=== PATIENT | female | born 1985 | race Caucasian/White ===

== ENCOUNTER 2025-06-08 10:20 | Outpatient (CLI) | payer BC, SELFPAY ==
--- NOTE | ~2025-06-08 | MM_ITS ---
EXAMINATION: MM screening chelsea BI w starr HISTORY: Screening TECHNIQUE: Craniocaudal and mediolateral oblique 3-D tomosynthesis images were obtained and synthetic 2-D images were generated. CAD analysis was submitted and interpreted. COMPARISON: No prior mammogram is available for comparison at this institution. BREAST PARENCHYMAL COMPOSITION: Dense: The breasts are heterogeneously dense, which may obscure small masses FINDINGS: There is no evidence of suspicious mass, calcification, or architectural distortion to suggest malignancy in either breast. There has been no suspicious interval change. IMPRESSION: 1. No mammographic evidence of malignancy. 2. Recommend routine screening mammography in one year. BI-RADS Category 1: Negative Reviewed, dictated and finalized at location B.
--- OUTSIDE RECORDS SUMMARY | 2025-06-08 10:54 | XMS_ITS | Clinical Summary ---
Author Organization [facility] Address [address] [place] [address] Care Team Providers Care Turnaround Engineer Name Role Phone Unavailable Primary Care Provider Unavailabl e Source Comments [facility],non-owned Affiliates and Associated Physician Practices is amultiple site organization consisting of ambulatory clinics and hospital sitesin [place], [place], [place] and [place]. This disclosure is being madepursuant to the Care Everywhere program and may not contain all information available regarding this patient. Last updated 18.[facility] [employer] Active Problems Problem Noted Date Diagnosed Date Headache 05/23/2015 Deficiency of other specified B group vitamins 0 10/19/2012 Overview (11/08/2017): Abnormal white matter lesions on brain MRI. MS and strokes not likely Social History Tobacco Use Types Packs/Day Years Used Date Smoking Tobacco: Never Assessed Comments Unknown Sex and Gender Information Value Date Recorded Sex Assigned at Not on file Legal Sex Female 6:46 PM COUNTER FORMER Gender Identity Not on file Sexual Orientation Not on file Plan of Treatment Health Maintenance Due Date Last Done Comments LIPID TESTING 1984 MAMMOGRAM 1984 HIV SCREENING 02/21/1999 HEPATITIS C SCREENING 02/17/2002 DTAP/TDAP/TD VACCINES (1 - Tdap) 02/21/2003 HEPATITIS B VACCINE (1 of 3 - 19+ 3-dose series) 02/21/2003 HPV VACCINE (1 - 3-dose SCDM series) 02/21/2011 DEPRESSION SCREENING 08/09/2024 COVID-19 VACCINE (1 - 2023-2 5 season) 2025 INFLUENZA VACCINE (#1) 2025 ZOSTER VACCINE (1 of 2) 02/21/2034 HIB VACCINE Aged Out No longer eligi ble based on patient's age to complete this topic MENINGOCOCCAL (Group B) VACC INE SHARED DECISION-MAKING Aged Out No longer eligibl e based on patient's age to complete this topic MENINGOCOCCAL GROUPS A/C/Y/W VACCINE Aged Out No longer eligible b ased on patient's age to complete this topic PNEUMOCOCCAL VACCINE Aged Out No long er eligible based on patient's age to complete this topic
--- OUTSIDE RECORDS SUMMARY | 2025-06-08 10:54 | XMS_ITS | Clinical Summary ---
Author Organization [facility] Address [address] [place] [address] Phone Care Team Providers Care Weather Forecaster Name Role Phone Ethel Franklin Primary Care Provider [phone] Allergies No known active allergies Medications venlafaxine (EFFEXOR-XR) 75 MG CAPSULE SR 24 HR Take 1 Capsule by mouth daily. 90 Capsule 3 01/30/2025 Active valACYclovir (VALTREX) 1 GM Tablet Take 0.5 Tablets by mouth 2 times daily. 60 Tablet 02/16/2025 Active Active Problems No known active problems Family History Medical History Relation Name Comments Crohn's Disease Brother No Known Problems Father No Known Problems Maternal Grandfather Chronic Obstructive Pulmonary Disease Maternal Grandmo ther Arthritis Mother Heart Attack Paternal Grandfather Heart Surgery Paternal Grandfather Rheumatoid Arthritis Paternal Grandmother Relation Name Status Comments Brother Alive Father Alive Maternal Grandfather Maternal Grandmother Mother Alive Paternal Grandfather Paternal Grandmother Social History Tobacco Use Types Packs/Day Years Used Date Smoking Tobacco: Former Cigarettes Smokeless Tobacco: Never Tobacco Cessation:Counseling Given: Not Answered Alcohol Use Standard Drinks/Week Comments Not Currently 0 (1 standard drink = 0.6 oz pur e alcohol) [facility] Utilities Answer Date Recorded In the past 12 months has e [employer], gas, oil, or water company threatened to shut off services in your home? No 08/11/2024 Social Connection and Isolation Panel Answer Date Recorded In a typical week, how many times do you talk on the phone with family, friends, or neighbors? More than three times a week 08/11/2024 How often do you get togethe r with friends or relatives? Once a week 08/11/2024 How often do you attend chur ch or mu-ism services? Never 08/11/2024 Do you belong to any clubs o r organizations such as catholic groups, unions, fraternal or athletic groups, or school groups? Yes 08/11/2024 How often do you attend meet ings of the clubs or organizations you belong to? More than 4 times per year 08/11/2024 Are you , , di vorced, , never , or living with a partner? 08/11/2024 AUDIT-C Answer Date Recorded Q1: How often do you have a drink containing alc ohol? Monthly or less 08/11/2024 Q2: How many drinks containi ng alcohol do you have on a typical day when you are drinking? 3 or 4 08/11/2024 Q3: How often do you have si x or more drinks on one occasion? Less than monthly 08/11/2024 Overall Financial Resource Strain (CARDIA) Answe r Date Recorded How hard is it for you to pa y for the very basics like food, housing, medical care, and heating? Not hard at all 08/11/2024 PHQ-2 Answer Date Recorded Total Score - Questions 1-9 8 12/07 [facility] - Occupational Stress Questionnaire Answer Date Recorded Do you feel stress - tense, restless, nervous, or anxious, or unable to sleep at night because your mind is troubled all the time - these days? To some extent 08/11/2024 Exercise Vital Sign Answer Date Recorde d On average, how many days pe r week do you engage in moderate to strenuous exercise (like a brisk walk)? 5 days 08/11/2024 On average, how many minutes do you engage in exercise at this level? 40 min 08/11/2024 Hunger Vital Sign Answer Date Recorded Within the past 12 months, y ou worried that your food would run out before you got the money to buy more. Never true 08/11/19 25 Within the past 12 months, t he food you bought just didn't last and you didn't have money to get more. Never true 08/11/2024 PRAPARE - Transportation Answer Date Re corded In the past 12 months, has l ack of transportation kept you from medical appointments or from getting medications? No 10/2024 In the past 12 months, has l ack of transportation kept you from meetings, work, or from getting things needed for daily living? No 08/11/2024 Housing Stability Vital Sign Answer Michael e Recorded In the last 12 months, was t here a time when you were not able to pay the mortgage or rent on time? No 08/11/2024 In the past 12 months, how m any times have you moved where you were living? 0 08/11/2024 At any time in the past 12 m [facility], were you homeless or living in a alf (including now)? 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 Not on file Not on file Last Filed Vital Signs Vital Sign Reading Time Taken Comments Blood Pressure 104/70 12/18/2024 9:28 AM CDT Pulse 85 12/18/2024 9:28 AM CDT Temperature 36.7 C (98 F) 12/18/2024 9:28 AM CDT Respiratory Rate 12 12/18/2024 9:28 AM CDT Oxygen Saturation 99% 12/18/2024 9:28 AM CDT Inhaled Oxygen Concentration - - Weight 76.7 kg (169 lb) 12/18/2024 9:28 AM CDT Height 165.1 cm (5' 5) 08/11/2024 2:37 PM LINING CASER Body Mass Index 28.12 08/11/2024 2:37 PM LINING CASER Plan of Treatment Upcoming Encounters Date Type Department Care Team (Late st Contact Info) Description 08/31/2025 4:20 PM LINING CASER Office Visit [facility] - [place] [address] [place] [address] Ethel Franklin, DO [address] [place] [address] Health Maintenance Due Date Last Done Comments Hepatitis C Virus (HCV) Screening 1984 TdaP Immunization 1984 Hepatitis B Immunization (1 of 3 - 19+ 3-dose series) 02/21/2003 Human Papillomavirus (HPV) Immunization (1 - 3-dose SCDM series) 02/21/2011 HPV/Cotest 02/21/2014 Influenza Immunization (#1) 2025 SARS-COV-2 Immunization ( season) 2025 11/28/2021, 12/24/2020, 12/02/2020 Mammogram 06/06/2025 06/06/2024 Cervical Cancer Screening (CCS) 02/21/2028 Pap Smear 02/21/2028 02/20/2025, 0704/2024, 02/12/2023, Additional history exists Respiratory Syncytial Virus (RSV) Immunization (Adult) (1 - 1-dose 75+ series) 02/21/2059 Discussion re Starting/Frequency of Mammograms Completed 06/16/2024, 06/06/2024 Meningococcal Immunization (ACWY) Aged Out No longer eligible based on patient's age to complete this topic Pneumococcal Immunization Combined Aged Out No longer eligible based on patient's age to complete this topic Rotavirus Immunization Aged Out No lo nger eligible based on patient's age to complete this topic Procedures Procedure Name Priority Date/Time Associated Diagnosis Comments PATHOLOGY CYTOLOGY DIRECTOR TECHNICAL 02/20/2025 12:00 AM CDT from Last 3 Months or Most Recently Relevant to Health Maintenance Results * PATHOLOGY CYTOLOGY DIRECTOR TECHNICAL (02/20/2025 12:00 AM CDT) 02/20/2025 us Provider Scan PATHOLOGY/CYTOLOGY ORDERABLES Fi nal Result SCAN from Last 3 Months or Most Recently Relevant to Health Maintenance Insurance [facility] Care Teams Weather Forecaster Relationship Specialty Start Date End Date Ethel Franklin DO [address] [facility] [place] [address] PCP - General Family Medicine 08/10/24
--- OUTSIDE RECORDS SUMMARY | 2025-06-08 10:54 | XMS_ITS | Encounter Summary ---
Author Organization [facility] Address [address] [place] [address] Phone Care Team Providers Care Tip Stretcher Name Role Phone Ethel Franklin DO Primary Care Provider [phone] Reason for Visit * Reason Onset Date Comments Cough 02/08/2025 Fever 02/08/2025 Encounter Details Date Type Department Care Team (Late st Contact Info) Description 02/08/2025 Nurse Triage [facility] [address] [place] [address] Ethel Franklin, DO 2 . [facility] [address] [place] [address] Cough; Fever Social History Tobacco Use Types Packs/Day Years Used Date Smoking Tobacco: Former Cigarettes Smokeless Tobacco: Never Alcohol Use Standard Drinks/Week Comments Not Currently 0 (1 standard drink = 0.6 oz pur e alcohol) [facility] Utilities Answer Date Recorded In the past 12 months has [employer], gas, oil, or water [employer] threatened to shut off services in your home? No 08/11/2024 Social Connection and Isolation Panel Answer Date Recorded In a typical week, how many times do you talk on the phone with family, friends, or neighbors? More than three times a week 08/11/2024 How often do you get togethe r with friends or relatives? Once a week 08/11/2024 How often do you attend [facility] or mandaeism services? Never 08/11/2024 Do you belong to any clubs o r organizations such as baptism groups, unions, fraternal or athletic groups, or [...] Total Score - Questions 1-9 8 12/07 [facility] - [...] any time in the past 12 m [place], were you homeless or living in a senior living (including now)? 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 No personal union contract representative designee form on file. Patient did not want to call doctor but spouse insisted. Spouse is not on a PRD. Spouse states theyhave both been sick this week, and spouse has received treatment. Spouse would like patient to get some treatment as well. ASSESSMENT: Symptom Description / Location: and patient are sick. was prescribed amoxicillin and albuterol inhaler, & cetrizine Spouse suspects fever. Has never taken her temperature and patient is taking Tylenol Body aches Fatigue Cough productive but not able to state what color sputum is. Slight wheezing Headache Nausea Loss stool Symptoms started on Wednesday Has not tested at home for the covid/flu tested at home and was negative for covid/flu A&B Spouse unsure what medications patient is taking Pain: Caller denies pain. Fever: Suspected fevers, but not measured at home. RECOMMENDATION: Dispositions for Encounter:Go to Office or Video Visit Now. Reason for Disposition: Wheezing is present . Protocols Used: Cough-A-OH Spouse unsure patient will go to [facility], and hung up. Unable to provide further care advice due to no form on file granting permission to speak to caller. Due to office unavailability within disposition, advised for patient to be seen at [facility] or urgent care. Unsure patient will go to [facility] Encounter routed to provider high priority to notify. Due to triaged for be seen now and unsure patient will go to [facility]. - See care advice and disposition for Guideline. First positive answer recorded, all responses to prior questions were negative. If symptoms increase, change or if new symptoms develop, call your health care provider or call back. Recommendations were based on caller information and is not a diagnosis. Verified and reviewed all triage information with caller. * Telephone Encounter - Justa Andino - 02/08/2025 3:36 PM CDT Symptoms: Fever, Chills, Nausea But No Vomiting, Chest Congestion, Cough, Body Aches, Lethargic (Tired), Dizziness Outcome: Transfer to surveillance inspector queue Reason: Wheezing (high-pitched whistling sound) The caller accepted this outcome. Caller Denied: * Can't stand (unless normally can't stand) * Acting confused * Choked on something * Hard to wake up * Trouble walking * Caused by head injury * Passed out * Trouble breathing through the mouth documented in this encounter Plan of Treatment Upcoming Encounters Date Type Department Care Team (Late st Contact Info) Description 08/31/2025 4:20 PM BIT AND SHANK DEPARTMENT SUPERVISOR Office Visit [facility] [address] [place] [address] Ethel Franklin, DO 2 [facility] [address] [address] documented as of this encounter Visit Diagnoses Not on filedocumented in this encounter Additional Health Concerns Assessment Noted Time PHQ-9 Depression Total Score: 8 12/19/19 25 9:27 AM CDT documented as of this encounter Care Teams Tip Stretcher Relationship Specialty Start Date End Date Ethel Franklin DO 2 [facility] [address] [facility]. [address] [place] [address] PCP - General Family Medicine 08/10/24 documented as of this encounter
--- OUTSIDE RECORDS SUMMARY | 2025-06-08 10:54 | XMS_ITS | Clinical Summary ---
Author Organization [facility] Address [address] [place] [address] Care Team Providers Care Biofuels Production Manager Name Role Phone Unknown, Notinfile Primary Care Provider Unavail able Allergies No known active allergies Medications vitamin D3-vitamin K2 25 mcg (1,000 unit)-90 mcg tablet,disintegr ating Take by mouth Active Active Problems Problem Noted Date Diagnosed Date BMI 28.0-28.9,adult 05/10/2023 Acute left-sided thoracic back pain 05/10/2023 Assessment & Plan (05/10/2023 3:26 PM CDT): Thoracic back x-rays ordered, will follow. Continue to rest back, if no improvement. Consider physical therapy. Mass of breast 05/07/2015 Immunizations Immunization Administration Dates Next Due Influenza, Unspecified 05/10/2023(Deferr ed: Patient Refused),05/10/2023(Deferred: Patient Refused),05/10/2023(Deferred: Patient Refused),05/09/2022(Deferred: Patient Refused) Medical History Medical History Date Comments Smoking Family History Medical History Relation Name Comments Breast cancer Neg Hx Ovarian cancer Neg Hx Thyroid cancer Neg Hx Social History Tobacco Use Types Packs/Day Years Used Date Smoking Tobacco: Never Tobacco Cessation:Counseling Given: Not Answered PHQ-2 Answer Date Recorded PHQ-2 Total Score (If total score is 3 or more points, staff should administer the PHQ-9) 0 05/10/2023 Comments Unknown Sex and Gender Information Value Date Recorded Sex Assigned at Not on file Legal Sex Female 11:37 AM ELECTRICIAN UNDERGROUND Gender Identity Not on file Sexual Orientation Not on file Obstetrics History Para Term AB IAB SAB Ectopic Multiple Livin g Live Births 1 1 1 Date Outcome GA Total Labor Labor/2nd/3rd Weight Sex Type Anes PTL Sheridan A1 A5 Name Clin Term Last Filed Vital Signs Vital Sign Reading Time Taken Comments Blood Pressure 118/56 05/10/2023 1:42 PM CDT Pulse 75 05/10/2023 1:42 PM CDT Temperature 36.2 C (97.2 F) 05/10/2023 1:42 PM CDT Respiratory Rate 16 05/10/2023 1:42 PM CDT Oxygen Saturation 96% 05/10/2023 1:42 PM CDT Inhaled Oxygen Concentration - - Weight 76.7 kg (169 lb) 05/10/2023 1:42 PM CDT Height 165.1 cm (5' 5) 06/06/2024 8:47 AM CDT Body Mass Index 28.56 05/10/2023 1:42 PM CDT Plan of Treatment Health Maintenance Due Date Last Done Comments DTaP/Tdap/Td Vaccine (1 - Tdap) 02/21/1995 Varicella Vaccines (1 of 2 - 13+ 2-dose series) 02/21/1997 Hepatitis B Screening 02/21/2002 HPV Vaccines (1 - 3-dose SCD M series) 02/21/2011 Depression Screening 05/10/2024 05/10/2023 Regular Well Visit/Exam 18-64 05/10/2024 05/10/2023 Covid-19 Vaccine (4 - 2024-2 6 season) 2025 11/28/2021, 12/24/2020, 12/02/2020 Influenza Vaccine (#1) 2025 Breast Cancer Screening-Mammogram 06/06/2025 06/06/2024 Cervical Cancer Screening 02/16/2028 02/15/2023 Hepatitis C Screening Completed 07/26/2023 Pneumococcal vaccine <65 Aged Out No longer eligible based on patient's age to complete this topic Procedures Procedure Name Priority Date/Time Associated Diagnosis Comments SCREENING MAMMOGRAM BILATERAL W CHRISTIANO Schedule Routine, Read Routine (OP Routine) 06/06/2024 9:00 AM CDT Screening mammogram, encounter for HEPATITIS C ANTIBODY Routine 07/26/2023 3:15 PM ELECTRICIAN UNDERGROUND Annual physical exam Encounter for hepatitis C screening test for low risk patient HM PAP SMEAR WITH HPV Routine 02/15/2023 from Last 3 Months or Most Recently Relevant to Health Maintenance Results * (ABNORMAL) Screening Mammogram Bilateral W Christiano (06/06/2024 9:00 AM CDT) Anatomical Region Laterality Modality Breast Bilateral Mammography 06/06/2024 7:49 PM CDT Impressions 06/06/2024 7:49 PM CDT Focal asymmetry in the left breast requires further evaluation with additional mammographic images and possible sonography. BI-RADS: BI-RADS Category 0: Incomplete - Need Additional Imaging Evaluation. The patient has been or will be contacted. The patient will be entered into a reminder system with a target due date of 1 year for her next mammogram. Electronically signed by: Tiffany Florence M.D. Narrative 06/06/2024 7:49 PM CDT EXAMINATION: SCREENING MAMMOGRAM BILATERAL W CHRISTIANO ORDERING HEALTHCARE PROVIDER: SELF SCREENING MAMMOGRAM HISTORY: Routine screening mammography. COMPARISON: None TECHNIQUE: CC and MLO views of the bilateral breasts were obtained with digital technique using breast tomosynthesis with C view. Computer aided detection was utilized. FINDINGS: DENSITY: The breasts are heterogeneously dense, which may obscure small masses. BREASTS: There is a focal asymmetry at the 9 o'clock position of the left breast posteriorly. There are suspicious masses, suspicious calcifications, or other suspicious findings in either breast. us Self Screening Mammogram IMG MAMMO PROCEDURES Fi nal Result * Hepatitis C antibody Blood (07/26/2023 3:15 PM ELECTRICIAN UNDERGROUND) Hep C Ab Nonreactive Nonreactive ALLISON NICOLAS (JACK) Comment: Interpretive Data Nonreactive: Antibodies to HCV not detected. Does NOT exclude the possibility of recent exposure to HCV. Equivocal: Equivocal for HCV antibodies. Supplemental molecular testing will be automatically performed to determine infection status in accordance with current CDC screening recommendations. Reactive: Positive for HCV antibodies. This may represent current or past HCV infection. Supplemental molecular testing will be automatically performed to determine current infection status in accordance with current CDC screening recommendations. Interpretive data was last revised on 2019. Testing performed by: [facility], [address] [place] [address], [place]., [address] Blood 07/26/2023 3:15 PM ELECTRICIAN UNDERGROUND 07/26/2023 6:25 PM ELECTRICIAN UNDERGROUND us Loan Saleem DO LAB MICROBIOLOGY - GENERAL ORDERABLES Edited Result - Final ALLISON NICOLAS (JACKSON) [address] [facility] Department [place] [address] * PAP SMEAR WITH HPV (02/15/2023) us Historical Provider MD HEALTH MAINTENANCE Final Result from Last 3 Months or Most Recently Relevant to Health Maintenance Insurance [facility] [place] [address] [facility] CHO[facility] PL[facility] [place] [address] [place] [address] [employer] [facility] [employer] [place] [address] [employer] Care Teams Biofuels Production Manager Relationship Specialty Start Date End Date Unknown, Notinfile PCP - General 04/06/24
== END 2025-06-08 10:21 | disposition home or self-care (01) ==
LOC: CHSIMG 10:24
PROVIDERS: PCP Student in an Organized Health Care Education/Training Program; Visit Provider Nurse Practitioner
DX: Z12.31 Encounter for screening mammogram for malignant neoplasm of breast (principal)
CPT/HCPCS: 77063; 77067